=== PATIENT | female | born 1955 | race Caucasian/White ===

== ENCOUNTER → 2017-02-01 | Outpatient (CLI) | payer OTHER ==
[~2017-02-01] MED LIST: DEPO METHYLPREDNISOLONE 40 MG/ML SDV ONE; IOPAMIDOL (ISOVUE 370) 100 ML BTL IV ONE; LIDOCAINE 1% 300 MG/30 ML SDV ONE; ROPIVACAINE HCL 150 MG/30 ML INJ ONE
== END ==
LOC: FIMAGING 13:12
PROVIDERS: ATTEND Orthopaedic Surgery
DX: M17.11 Unilateral primary osteoarthritis, right knee (principal)
CPT/HCPCS: J1030; J2795; Q9967

== ENCOUNTER → 2017-05-16 | Outpatient (CLI) | payer OTHER | LOC: FIMAGING 10:24 | PROVIDERS: ATTEND Family Medicine | DX: Z12.31 Encounter for screening mammogram for malignant neoplasm of breast (principal) | CPT/HCPCS: G0202 ==

== ENCOUNTER → 2017-12-21 | Outpatient (CLI) | payer OTHER ==
[~2017-12-21] MED LIST changes: +DEPO METHYLPREDNISOLONE 80 MG/ML SDV ONE
== END ==
LOC: FIMAGING 10:19
PROVIDERS: ATTEND Orthopaedic Surgery
PROC: 3E0U3BZ Introduction of Anesthetic Agent into Joints, Percutaneous Approach (ICD-10-PCS; principal; 2017-12-21)
PROC: 3E0U33Z Introduction of Anti-inflammatory into Joints, Percutaneous Approach (ICD-10-PCS; principal; 2017-12-21)
DX: M16.11 Unilateral primary osteoarthritis, right hip (principal)
CPT/HCPCS: J1030; J1040; J2795; Q9967

== ENCOUNTER → 2018-05-10 | Outpatient (CLI) | payer OTHER | LOC: FIMAGING 15:26 | PROVIDERS: ATTEND Orthopaedic Surgery | DX: Z01.818 Encounter for other preprocedural examination (principal); M16.11 Unilateral primary osteoarthritis, right hip ==

== ENCOUNTER → 2018-05-17 | Outpatient (CLI) | payer OTHER | LOC: FIMAGING 13:03 | PROVIDERS: ATTEND Family Medicine | DX: Z12.31 Encounter for screening mammogram for malignant neoplasm of breast (principal); Z85.3 Personal history of malignant neoplasm of breast; Z90.11 Acquired absence of right breast and nipple ==

== ENCOUNTER 2018-06-24 08:30 | Inpatient (IN) | payer OTHER ==
[~2018-06-24 08:30] MED LIST changes: -DEPO METHYLPREDNISOLONE 40 MG/ML SDV ONE; -DEPO METHYLPREDNISOLONE 80 MG/ML SDV ONE; -IOPAMIDOL (ISOVUE 370) 100 ML BTL IV ONE; -LIDOCAINE 1% 300 MG/30 ML SDV ONE; +ROPIVACAINE 0.2% 80 MG, EPINEPHrine 0.2 MG in SYRINGE 0 ML IU ONE; -ROPIVACAINE HCL 150 MG/30 ML INJ ONE; +TRANEXAMIC ACID 1,000 MG in NS 100 ML IV ONE
[2018-06-24] MEDS ORDERED: FAMOTIDINE 20 MG TAB PO ONE (08:50)
[2018-06-24] MEDS ORDERED: ceFAZolin 2 GM/DEXTROSE 100 ML IV ONE (08:50)
[2018-06-24] MEDS ORDERED: LR 1,000 ML IV ONE (08:52)
[2018-06-24] MEDS ORDERED: fentaNYL 100 MCG/2 ML INJ IVP PRN ×2 (09:24→11:52)
--- NOTE | 2018-06-24 09:28 | PDANEPAE ---
ANE History of Present Illness hip DJD ANE Past Medical History - Cardiovascular History Hx Hypertension: No Hx Arrhythmias: No Hx Chest Pain: No Hx Coronary Artery / Peripheral Vascular Disease: No Hx CHF / Valvular Disease: No Hx Palpitations: No - Pulmonary History Hx COPD: No Hx Asthma/Reactive Airway Disease: No Hx Recent Upper Respiratory Infection: No Hx Oxygen in Use at Home: No Hx Sleep Apnea: No Sleep Apnea Screening Result - Last Documented: Negative - Neurologic History Hx Cerebrovascular Accident: No Hx Seizures: No Hx Dementia: No - Endocrine History Hx Diabetes: No Hypothyroid: Yes Hyperthyroid: No Obesity: no Endocrine History Comment: hypothyroidism. hx of hypoglycemia - Renal History Hx Renal Disorders: No - Liver History Hx Hepatic Disorders: No - Neurological & Psychiatric Hx Hx Neurological and Psychiatric Disorders: No - Cancer History Hx Cancer: Yes Cancer History Comment: right breast ca no chemo or radiation - Congenital Disorder History Hx Congenital Disorders: No - GI History GERD: no Hx Gastrointestinal Disorders: No - Other Health History Other Health History: wears glasses - Chronic Pain History Chronic Pain: Yes (right hip) - Surgical History Prior Surgeries: pyliondal cyst removed. . right mastectomy. right breast reconstruction. right shoulder repair. oophorectomy. hysterectomy ANE Review of Systems Review of systems is: negative Review of Systems: - Exercise capacity METS (RN): 4 METS ANE Patient History - Allergies Allergies/Adverse Reactions: acetaminophen [From Percocet] Allergy (Verified 06/05/18 16:29) Hives adhesive Allergy (Verified 06/10/18 12:54) Rash aspirin Allergy (Verified 06/05/18 16:29) Hives latex Allergy (Verified 06/10/18 12:54) Rash oxycodone [From Percocet] Allergy (Verified 06/05/18 16:29) Hives Tetanus Vaccines and Toxoid Allergy (Verified 06/10/18 12:52) SWELLING - Home Medications Home medications: home medication list seen and reviewed Home Medications: Levothyroxine [Synthroid 100 mcg (*)] 100 mcg PO DAILY06 06/05/18 [Last Taken 05:00] Meloxicam 15 mg PO DAILY 06/05/18 [Last Taken 06/23/18] - NPO status NPO Status: no food or drink >8 hours NPO Since - Liquids (Date): 06/24/18 NPO Since - Liquids (Time): 06:00 NPO Since - Solids (Date): 06/23/18 NPO Since - Solids (Time): 18:00 - Anes Hx Anes Hx: no prior problems - Smoking Hx Smoking Status: Former smoker - Alcohol Use Alcohol Use: Rarely - Family Anes Hx Family Anes Hx: none Family Hx Anesthesia Complications: none ANE Labs/Vital Signs - Vital Signs Blood Pressure: 124/78 Heart Rate: 62 Respiratory Rate: 18 O2 Sat (%): 94 Height: 168.91 cm Weight: 65.771 kg ANE Physical Exam - Airway Neck exam: FROM Mallampati Score: Class 2 Mouth exam: normal dental/mouth exam - Pulmonary Pulmonary: no respiratory distress, clear to auscultation - Cardiovascular Cardiovascular: regular rate and rhythym, no murmur, rub, or gallop - ASA Status ASA Status: II ANE Anesthesia Plan Anesthesia Plan: spinal
[2018-06-24] MEDS ORDERED: fentaNYL 100 MCG/2 ML INJ IVP ONE (09:30)
[2018-06-24] MEDS ORDERED: ceFAZolin 1 GM/5 ML SYR ONE (10:01)
[2018-06-24] MEDS ORDERED: MIDAZOLAM 2 MG/2 ML VIAL IVP ONE (10:13)
[2018-06-24] MEDS ORDERED: PROPOFOL/EMULSION 500 MG/50 ML BOTTLE IV ONE (10:16)
[2018-06-24] MEDS ORDERED: ePHEDrine SULFATE 25 MG/5 ML SYR ONE (11:31)
[2018-06-24] MEDS ORDERED: MEPERIDINE 25 MG/0.5 ML AMP IVP PRN (11:52)
[2018-06-24] MEDS ORDERED: DEXAMETHASONE 4 MG/ML VIAL IVP PRN (11:52)
[2018-06-24] MEDS ORDERED: PROMETHAZINE HCL 25 MG/ML INJ IVP PRN ×2 (11:52→12:25)
[2018-06-24] MEDS ORDERED: ONDANSETRON 4 MG/2 ML VIAL IVP PRN ×2 (11:52→12:25)
[2018-06-24] MEDS ORDERED: NALOXONE HCL 0.4 MG/ML INJ IVP PRN (11:52)
--- NOTE | 2018-06-24 11:54 | POSTANESTH ---
Post Anesthetic Evaluation Cardiovascular Status: Normal, Stable Respiratory Status: Normal, Stable Level of Consciousness/Mental Status: Can Participate in Eval Pain Control: Adequate, Prn Tx Ordered Nausea/Vomiting Control: Adequate, Prn Tx Ordered Complications Possibly Related to Anesthesia: None Noted
[2018-06-24] MEDS ORDERED: PHENYLEPHRINE HCL 100 MCG/ML SYR ONE (12:11)
[2018-06-24] MEDS ORDERED: TEMAZEPAM 15 MG CAP PO PRN (12:25)
[2018-06-24] MEDS ORDERED: MAGNESIUM HYDROXIDE 30 ML UDCUP PO PRN (12:25)
[2018-06-24] MEDS ORDERED: diphenhydrAMINE 25 MG CAP PO PRN (12:25)
[2018-06-24] MEDS ORDERED: LACTULOSE 20 GM/30 ML UDCUP PO PRN (12:25)
[2018-06-24] MEDS ORDERED: oxyCODONE IR 5 MG TAB PO PRN (12:25)
[2018-06-24] MEDS ORDERED: PROMETHAZINE HCL 25 MG SUPPR PR PRN (12:25)
[2018-06-24] MEDS ORDERED: DIPHENOXYLATE/ATROPINE LOMOTIL 1 TAB PO PRN (12:25)
[2018-06-24] MEDS ORDERED: BISACODYL 10 MG SUPP PR PRN (12:25)
[2018-06-24] MEDS ORDERED: METOCLOPRAMIDE 10 MG/2 ML VIAL IVP PRN (12:25)
[2018-06-24] MEDS ORDERED: ONDANSETRON DISINTEGRATING 4 MG TAB PO PRN (12:25)
[2018-06-24] MEDS ORDERED: POLYETHYLENE GLYCOL 3350 17 GM PKT PO PRN (12:25)
--- NOTE | 2018-06-24 12:27 | POSTOPPROG ---
Post Op Note Date of Operation: 06/24/18 Surgeon: Phillip Chaves Portrait Artist: julia Anesthesiologist: raj Anesthesia: Spinal Pre-op Diagnosis: right hip djd Post-op Diagnosis: same Indication: same Procedure: right andreia Inf/Abcess present in the surg proc area at time of surgery?: No Depth: Deep Incisional (Fascial) EBL: 100-500 Drains: Hemovac
[2018-06-24] MEDS ORDERED: LR 1,000 ML IV SCH (12:30)
--- NOTE | 2018-06-24 13:43 | PDMN ---
Medical Necessity Medical necessity: [facility] S560 Hip Arthroplasty: 63 yo s/p R ABBE, [facility] IP only
[2018-06-24] MEDS: CYCLOBENZAPRINE 10 MG TAB PO PRN (15:58)
[2018-06-24] MEDS: TAPENTADOL HCL 50 MG TAB PO PRN ×2 (16:27→22:39)
[2018-06-24] MEDS ORDERED: KETOROLAC 30 MG/1 ML SDV IVP ONE (17:00)
[2018-06-24] MEDS: TRANEXAMIC ACID 650 MG TAB PO SCH ×2 (17:10→22:38)
[2018-06-24] MEDS ORDERED: ACETAMINOPHEN 325 MG TAB PO SCH (18:00)
[2018-06-24] MEDS: ceFAZolin 2 GM/DEXTROSE 100 ML IV SCH (18:08)
[2018-06-24] MEDS ORDERED: ASPIRIN 325 MG TAB PO SCH (21:00)
[2018-06-24] MEDS: FAMOTIDINE 20 MG TAB PO SCH (22:38)
[2018-06-24] MEDS: SENNOSIDES/DOCUSATE SODIUM TAB PO SCH (22:39)
[2018-06-25] MEDS: CYCLOBENZAPRINE 10 MG TAB PO PRN ×2 (01:19→11:33)
[2018-06-25] MEDS: ceFAZolin 2 GM/DEXTROSE 100 ML IV SCH (02:20)
[2018-06-25] MEDS: TRANEXAMIC ACID 650 MG TAB PO SCH (05:56)
[2018-06-25] MEDS: TAPENTADOL HCL 50 MG TAB PO PRN ×2 (06:00→14:37)
[2018-06-25] MEDS ORDERED: LEVOTHYROXINE 100 MCG TAB PO SCH (06:00)
--- NOTE | 2018-06-25 07:00 | PDIAF ---
- Diagnosis Diagnosis: right hip djd Code Status: Full Code - Medication Management Discharge Medications: electronically signed and located in the Home Medication List. - Orders Services needed: Home Custodial Care Face to Face: I certify that this patient was under my care and that I had the required [id number] encounter meeting the encounter requirements on the discharge day. My findings support the fact that the patient is homebound as defined in Home Care Face to Face Continued: CMS Chapter 7 Medicare Benefits Manual 30.1.1 , The condition of the patient is such that there exists a normal inability to leave home and consequently, leaving home would require a considerable and taxing effort. Diet Recommendation: no restrictions on diet Diet Texture: Regular Texture Diet - Follow Up Care Current Providers and Referrals: Amanda Medeiros DO [Primary Care Provider] - Phillip Chaves MD [Medical Doctor] -
--- NOTE | 2018-06-25 07:02 | SOAPPROG ---
SOAP Progress Note Assessment/Plan: Assessment: s/p right andreia Plan:pain crisis likely related to her lbp issues hip stable repeat xray stable dvt precautions, will use 200 mg ibuprofen and lovenox 40 mg sq given asa allergy f/u at two weeks , 06/25/18 07:00 Subjective: pain diminished improved mobility asaf po no cp or sob Objective: Vital Signs Temp Pulse Resp BP Pulse Ox 36.8 C 76 16 110/67 96 06/25/18 04:00 06/25/18 04:00 06/25/18 04:00 06/25/18 04:00 06/25/18 04:00 Laboratory Results 06/25/18 05:00 06/24/18 06/25/18 06/26/18 05:59 05:59 05:59 Intake Total 2545 Output Total 1330 Balance 1215 dressing intact intact pf,df,ehl toes warm and pink neg homans airam xrays stable anatomic alignment, no fx or lucency ICD10 Worksheet Patient Problems: Problems Problem Status Onset Hip arthritis Acute - ICD10 Problem Qualifiers (1) Hip arthritis
[2018-06-25 07:37] VITALS: BP 118/65
[2018-06-25] MEDS ORDERED: ENOXAPARIN 40 MG/0.4 ML SYR SC SCH (09:00)
[2018-06-25] MEDS ORDERED: IBUPROFEN 200 MG TAB PO SCH (09:00)
[2018-06-25] MEDS: FAMOTIDINE 20 MG TAB PO SCH (09:59)
[2018-06-25] MEDS: SENNOSIDES/DOCUSATE SODIUM TAB PO SCH (10:00)
--- NOTE | 2018-06-25 11:45 | ASMTCMCOM ---
CM Note CM Note Notes: Pt had planned oA of R hip. Pt medically stable for d/c with [facility]. Orders sent in [employer]. Date Signed: 06/25/2018 11:44 AM Electronically Signed By:MARIANA Camargo
--- NOTE | 2018-06-25 11:46 | ASMTLACE ---
LACE Length of stay for Answers: 2 days current admission Acuity / Level of Answers: Yes Care: Did the patient have an inpatient admission? Comorbidities - select Answers: Opioid dependence all that apply / Chronic pain Other Notes: Hypothyroid # of Emergency department Answers: 0 visits in the last 6 months Score: 10 Date Signed: 06/25/2018 11:45 AM Electronically Signed By:MARIANA Camargo
--- NOTE | 2018-06-26 09:35 | ASDISCHSUM ---
Discharge Information Plan Status:Home with Home Health Medically Cleared to Leave: Discharge Date:06/25/2018 02:53 PM CM D/C Disposition: ADT D/C Disposition:Home Health Service Projected Discharge Date:06/25/2018 11:00 AM Transportation at D/C: Discharge Delay Reason: Follow-Up Date:06/25/2018 11:00 AM Discharge Slot: Final Diagnosis: Placement Information Referral Type:*Home Health Care Services Referral ID:[id number] Provider Name:[facility] [place] Address 1:[address] [place] [address] Address 2: City:[place] Selection Factors: State:[place] Patient Contact Information Contact Name:TALYA Relationship: Address:[address] Work Phone: City:[place] Alternate Phone: State/[facility] Code:[place] [address] Email: Financial Information Financial Class:Medicare Primary Plan Desc:MEDICARE INPATIENT Primary Plan Number:[id number] Secondary Plan Desc:[employer] PPO Secondary Plan Number:[id number] Assessment Information LACE LACE Length of stay for Answers: 2 days current admission Acuity / Level of Answers: Yes Care: Did the patient have an inpatient admission? Comorbidities - select Answers: Opioid dependence all that apply / Chronic pain Other Notes: Hypothyroid # of Emergency department Answers: 0 visits in the last 6 months Score: 10 Date Signed: 06/25/2018 11:45 AM Electronically Signed By:MARIANA Camargo RUTHANN CM Progress Note CM Note CM Note Notes: Pt had planned oA of R hip. Pt medically stable for d/c with [facility]. Orders sent in [employer]. Date Signed: 06/25/2018 11:44 AM Electronically Signed By:MARIANA Camargo Intervention Information
== END 2018-06-25 14:53 | disposition home health service (06) | DRG 470 ==
LOC: F3N 08:30
PROVIDERS: ADMIT Orthopaedic Surgery; ATTEND Orthopaedic Surgery
DX: M16.11 Unilateral primary osteoarthritis, right hip (principal); E03.9 Hypothyroidism, unspecified; Z85.3 Personal history of malignant neoplasm of breast
CPT/HCPCS: 97110-GP; 97116-GP; 97161-GP; 97165-GO; 97535-GO; G8978-GP-CI; G8979-GP-CI; G8980-GP-CI; G8987-GO-CI; G8988-GO-CI; J0171; J0690; J1650; J1885; J2250; J2270; J2370; J2704; J2795; J3010